=== PATIENT | male | born 1960 | race Caucasian/White ===

== ENCOUNTER 2022-09-14 16:45 | Emergency (ER) | payer OTHER ==
[2022-09-14] MEDS ORDERED: AUGMENTIN 875 MG TAB (AMOXICILLIN/CLAVULANATE) PO STA (16:56)
--- NOTE | 2022-09-14 16:56 | ED EENT ---
History of Present Illness General Chief Complaint: Dental Problems/Pain Stated Complaint: FACIAL SWELLING; DENTAL PAIN Source: patient Exam Limitations: no limitations History of Present Illness Date Seen by Provider: Sep 14, 2022 Time Seen by Provider: 16:46 Initial Comments 51-year-old male with no pertinent past medical history coming in due to right lower mouth pain and swelling. He had a root canal about a year ago, its not causing him problems, he has an appointment with the specialist tomorrow regarding it. Started having pain and swelling on and was started on amoxicillin. He has been taking this faithfully. Has been taking intermittent Tylenol and ibuprofen which has been helping. Noticed increasing swelling today so was referred here. Otherwise denying any fever, difficulty opening his mouth, voice changes, or any other concerns. Allergies and Home Medications Allergies Coded Allergies: No Known Drug Allergies (Unverified , 09/14/22) Patient Home Medication List Home Medication List Reviewed: Yes Amoxicillin/Potassium Clav (Amox Tr-K Clv 875-125 mg Tab) 875 Mg-125 Mg Tablet, 1 EACH PO BID Prescribed by: RADHA MCINTOSH on 09/14/22 1704 Review of Systems Review of Systems Constitutional: No fever Eyes: No Symptoms Reported Ears: No Symptoms Reported Nose: no symptoms reported Mouth: see HPI Throat: no symptoms reported Respiratory: no symptoms reported Cardiovascular: no symptoms reported Gastrointestinal: no symptoms reported Musculoskeletal: no symptoms reported Skin: no symptoms reported Neurological: No Symptoms Reported Hematologic/Lymphatic: No Symptoms Reported Immunological/Allergic: no symptoms reported All Other Systems Reviewed Negative Unless Noted: Yes Past [id number] Hx Patient Social History Tobacco Use?: No Substance use?: No Alcohol Use?: No Past Medical History Surgeries: Yes (hernia repair) Physical Exam Vital Signs Vital Signs - First Documented 09/14/22 16:54 Temp 36.1 Pulse 88 Resp 16 B/P (MAP) 169/103 (125) Pulse Ox 97 O2 Delivery Room Air Height, Weight, BMI Height: '" Weight: lbs. oz. kg; BMI Method: General Appearance: WD/WN, no apparent distress Eyes: bilateral eye normal inspection Ears: bilateral ear auricle normal Nose: normal inspection Mouth/Throat: other (Dental abscess around tooth #18 on the bottom left, no trismus, floor of mouth is soft with no elevation, uvula is midline with no swelling, normal voice) Neck: non-tender, full range of motion, supple, normal inspection Cardiovascular: regular rate, rhythm, no edema, no murmur Respiratory: chest non-tender, lungs clear, normal breath sounds, no respiratory distress, no accessory muscle use Gastrointestinal: normal bowel sounds, non tender, soft; No distended, No g uarding, No rebound Neurologic/Psychiatric: no motor/sensory deficits, alert, normal mood/affect Skin: normal color, warm/dry Procedures/Interventions I&D : Site: tooth number 18 buccal surface Blade Size: 11 Progress Moderate amount of purulent drainage noted after an inferior alveolar block was performed with 0.5% bupivacaine with epinephrine using a dental syringe, patient tolerated procedure well with minimal bleeding. Progress/Results/Core Measures Results/Orders My Orders Orders - RADHA MCINTOSH MD Amoxicillin/Clavulanate Tablet (Augmenti (09/14/22 16:56) Ketorolac Injection (Toradol Injection) (09/14/22 17:00) Medications Given in ED Current Medications Medications Dose Ordered Sig/Marlo Route Start Time Stop Time Status Last Admin Dose Admin Ketorolac Tromethamine 15 mg ONCE ONCE IM 09/14/22 17:00 09/14/22 17:01 DC 09/14/22 17:02 15 MG Vital Signs/I&O 09/14/22 16:54 Temp 36.1 Pulse 88 Resp 16 B/P (MAP) 169/103 (125) Pulse Ox 97 O2 Delivery Room Air Progress Progress Note : Progress Note 61-year-old male with above history coming in due to dental abscess. It was drained and he was started on Augmentin instead of the amoxicillin. He has definitive management tomorrow with a dentist. Departure Impression Primary Impression: Dental abscess Disposition: HOME, SELF-CARE Condition: Improved Departure-Patient Inst. Decision time for Depature: 17:30 Referrals: KOKO PORTILLO DO (PCP) Primary Care Physician Patient Instructions: Tooth Abscess (DC) Add. Discharge Instructions: You will be on Augmentin for the next week, or whenever your dentist tells you to stop it. The fix will be for either tooth removal or whatever they deem necessary. Scripts Oxycodone HCl (Oxycodone HCl) 5 Mg Tablet 5 MG PO Q8H PRN for PAIN-SEVERE (8-10) for 2 Days, #6 TAB Prov: RADHA MCINTOSH MD 09/14/22 Amoxicillin/Potassium Clav (Amox Tr-K Clv 875-125 mg Tab) 875 Mg-125 Mg Tablet 1 EACH PO BID for 7 Days, #14 TAB Prov: RADHA MCINTOSH MD 09/14/22 Work/School Note: Work Release Form Date Seen in the Emergency Department: Sep 14, 2022 Return to Work: Sep 16, 2022 Restrictions: No Restrictions RADHA MCINTOSH MD Sep 14, 2022 16:56
[2022-09-14] MEDS ORDERED: KETOROLAC 15 MG/ML VIAL IM ONE (17:00)
[2022-09-14] MEDS ORDERED: AMOX1TAB12 PO (17:04)
[2022-09-14 17:15] VITALS: BP 169/103
[2022-09-14] MEDS ORDERED: OXYC5TAB PO (17:15)
== END 2022-09-14 17:17 | disposition home or self-care (01) ==
LOC: ER FS 16:47
DX: K04.7 Periapical abscess without sinus (principal)
CPT/HCPCS: 41800